=== PATIENT | female | born 1940 | race Caucasian/White ===

== ENCOUNTER → 2019-05-21 | Outpatient (CLI) | payer OTHER ==
[~2019-05-21] VITALS: Ht 152.4 cm; Wt 149.7 kg
[~2019-05-21] MED LIST: AMBIEN CR 6.26.25 MG PO; AMLODIPINE BESYL5 MG PO; APAP500 PO; ASPIRIN EC81 M1 PO; ATORVASTATIN CA80 MG PO; BENADRYL25 MG PO; BISAC-EVAC10 MG RC; CELEBREX 200 M200 M1 PO; CELEXA 20 MG TA20 MG PO; CLARITIN-D 121 EAC1 PO; CLARITIN10 MG PO; CLONAZEPAM 0.50.5 M1 PO; COUMADIN 5 MG TA5 M1 PO; DIOVAN HCT 1601 EAC1 PO; DOCUSATE SODIU100 MG PO; ENOXAPARIN120 MG/0.1 INJECTION; FERROUS SULFAT325 M1 PO; FISH OIL 1,001000 M1 PO; GLUCOPHAGE500 MG PO; GLYCOLAX17 GM PO; HYDROCODON-ACE1 EAC7 PO; LEXAPRO20 MG PO; LIDODERM1 EACH TOP; MINOCYCLINE HC100 M2 PO; NEXIUM 40 MG CA40 M1 PO; PRILOSEC OTC20 MG PO; SENNA PO; SYNTHROID200 MCG PO; SYNTHROID25 MC1 PO; SYNTHROID25 MCG PO; TRAMADOL 50 MG50 MG PO; VISTARIL 25 MG25 M1 PO; WELLBUTRIN SR150 MG PO; ZYRTEC10 M2 PO
[2019-05-21 12:58] VITALS: BP 146/82
--- NOTE | 2019-05-21 13:53 | NUR ---
Pain Clinic Assessment: 1. History of Osteoarthritis: SHOULDERS KNEES HIPS History of Rheumatoid Arthritis: Not Applicable 2. Height: 5 ft. 0 in. 152.4 cm. Weight: 330.0 lb. oz. 149.688 kg. Patient's BMI: 64.4 3. Vital Signs: BP: 146/82 Pulse: 73 Resp: 16 Temp: 02 Sat: 97 ECG Mon: 4. Pain Intensity: 5 5. Fall Risk: Dizziness: Y Needs help standing or walking: Y Fallen in the last 3 months: Y Fall risk comments: 6. Patient on Blood Thinner: None 7. History of Hypertension: Y 8. Opioid Therapy greater than 6 weeks: N Opiate Contract Signed: 9. Risk Assessment Tool Provided: 10. Functional Assessment Tool: 11. Recreational Drug Use: Never Drug Type: Tobacco Use: Never Smoker Tobacco Type: Amount or Packs/day: How Many Years: Alcohol Use: Yes Frequency: Daily Quant: 1/WEEK
== END ==
LOC: PAIN 07:06
DX: M54.16 Radiculopathy, lumbar region (principal); G89.29 Other chronic pain; E66.01 Morbid (severe) obesity due to excess calories; I10 Essential (primary) hypertension; Z79.891 Long term (current) use of opiate analgesic; Z79.899 Other long term (current) drug therapy

== ENCOUNTER → 2019-06-29 | Outpatient (CLI) | payer OTHER ==
[~2019-06-29] VITALS: Ht 152.4 cm; Wt 143.3 kg
[~2019-06-29] MED LIST changes: +APAP650 PO; +VITAMIN D22000 UNIT PO
--- NOTE | ~2019-06-29 | P ---
[facility] [place] [address] PROCEDURE REPORT Name: TOBIASJOSE J A Room #: REG [facility]#: [id number] Admission: 06/29/19 Attend Phys: Ermias Aldridge MD Discharge: Date of : 44 Report #: [id number] THIS REPORT FOR: //name// CC: Hayden Aldridge DATE OF SERVICE: 06/29/2019 DIAGNOSES: Low back pain with radiculopathy, left L5-S1 distribution. PROCEDURE: Left L5-S1 transforaminal epidural injection under fluoroscopic guidance. INDICATIONS FOR PROCEDURE: The patient was evaluated in the pain clinic less than 1 month ago. She was approved after that her office visit for a left transforaminal epidural injection based upon her physical exam findings and history. There have been no significant changes since her last visit. We reviewed the procedure, risks, and benefits. Questions were asked and she signed an informed consent prior to the procedure. PROCEDURE: Left L5-S1 transforaminal epidural injection. DESCRIPTION OF PROCEDURE: The patient was taken to fluoroscopic suite, placed prone, skin prepped with ChloraPrep. Skin anesthetized over the L5-S1 neural foramen. Using triplanar fluoroscopic views, I advanced needle into the neural foramen. A 1 mL of Omnipaque was injected and excellent spread of dye was seen into the epidural space. It also extended along the L5 nerve root. This was then followed by 4 mL of 0.5% lidocaine mixed with 60 mg of triamcinolone. She tolerated the procedure well. There were no complications. She was taken to recovery room for observation and discharged after a short stay. Followup visit planned in the pain clinic on an as needed basis going forward. Further injections may be indicated. By: [id number] Ermias Aldridge MD /nt
[2019-06-29 12:49] VITALS: BP 152/83
--- NOTE | 2019-06-29 13:07 | NUR ---
Pain Clinic Assessment: 1. History of Osteoarthritis: SHOULDERS KNEES HIPS History of Rheumatoid Arthritis: Not Applicable 2. Height: 5 ft. 0 in. 152.4 cm. Weight: 316.0 lb. oz. 143.337 kg. Patient's BMI: 61.7 3. Vital Signs: BP: 152/83 Pulse: 82 Resp: 20 Temp: 02 Sat: 97 ECG Mon: 4. Pain Intensity: 9-WHEN UP MOVING 5. Fall Risk: Dizziness: N Needs help standing or walking: Y Fallen in the last 3 months: N Fall risk comments: 6. Patient on Blood Thinner: None 7. History of Hypertension: Y 8. Opioid Therapy greater than 6 weeks: N Opiate Contract Signed: 9. Risk Assessment Tool Provided: 10. Functional Assessment Tool: 11. Recreational Drug Use: Never Drug Type: Tobacco Use: Never Smoker Tobacco Type: Amount or Packs/day: How Many Years: Alcohol Use: Yes Frequency: Quant:
== END | disposition home or self-care (01) ==
LOC: PAIN 06-04 13:05
DX: M54.16 Radiculopathy, lumbar region (principal); M54.5 Low back pain; Z88.8 Allergy status to other drugs, medicaments and biological substances; Z88.0 Allergy status to penicillin; Z79.899 Other long term (current) drug therapy; Z98.890 Other specified postprocedural states; Z79.84 Long term (current) use of oral hypoglycemic drugs

== ENCOUNTER → 2020-01-25 | Outpatient (CLI) | payer OTHER ==
[~2020-01-25] VITALS: Ht 152.4 cm; Wt 145.2 kg
--- NOTE | ~2020-01-25 | HPC ---
[facility] [address] [place] [address] PAIN MANAGEMENT CONSULTATION Name: JOSE J COLLADO Room #: REG [facility].#: [id number] Admission: 01/25/20 Attend Phys: Ermias Aldridge MD Discharge: Date of : 44 Report #: [id number] THIS REPORT FOR: cc: Hayden Owen MD, Neal A. MD Morgan,Ermias Lowry MD ~ CC: Hayden Aldridge DATE OF SERVICE: 01/25/2020 Followup visit for chronic low back pain with radiculopathy. The patient is a delightful 79-year-old woman who has a BMI of 62.5. She suffers from lumbar radiculopathy. Her pain is exclusively on the left. She has terrible left ankle as well and wears orthotic. She can walk a bit, but uses a walker, mostly does just transfers. She is able to get comfortable at rest, but in certain positions she is very uncomfortable. PQRS: Positive for pain in her shoulders, hips, knees with most severe osteoarthritis of the shoulders. This is likely due to weightbearing from her walker. BMI is mentioned as 62.5. She is not hypertensive at this time, well controlled with medication. Blood pressure 136/80, heart rate 83, respirations 20, O2 sat 97 on room air. She needs help walking and standing and uses a scooter outside of the house and a walker inside home. She has been cautious enough not to fall. Her pain intensity is 10 and positional. Risk assessment tool was not performed. We do not write opioids. SOCIAL HISTORY: She denies use of tobacco, drinks alcohol occasionally, maybe once a year in a social setting. Pain impact is 30/possible 70. PHYSICAL EXAMINATION: GENERAL: She is a pleasant female. VITAL SIGNS: As noted. Morbidly obese. CHEST: Clear. CARDIAC: Rhythm is regular. MUSCULOSKELETAL: Reveals tenderness across the lumbosacral segment. Positive straight leg raising discomfort on the left. Pain radiates all the way down the L5 distribution. IMPRESSION: L5 radiculopathy on the left. RECOMMENDATIONS: She had a 5-month response of 70% with her last lumbar epidural injection using a transforaminal approach. This would only be her second injection in 7 months. I strongly recommend we go forward with the [address] [address] PAIN MANAGEMENT CONSULTATION Name: JOSE J COLLADO Arabella Room #: REG [facility] Chayo#: [id number] Admission: 01/25/20 Attend Phys: Ermias Aldridge MD Discharge: Date of : 44 Report #: [id number] injection. We will seek preauthorization from her insurance. She has [employer] senior plan. She meets all criteria. Followup visit is planned as soon as we can get her scheduled. By: 1353 [id number] Ermias Aldridge MD /nt
[2020-01-25 12:42] VITALS: BP 136/80
--- NOTE | 2020-01-25 12:57 | NUR ---
Pain Clinic Assessment: 1. History of Osteoarthritis: SHOULDERS KNEES HIPS History of Rheumatoid Arthritis: Not Applicable 2. Height: 5 ft. 0 in. 152.4 cm. Weight: 320.0 lb. oz. 145.152 kg. Patient's BMI: 62.5 3. Vital Signs: BP: 136/80 Pulse: 83 Resp: 20 Temp: 02 Sat: 97 ECG Mon: 4. Pain Intensity: 10 POSITIONAL. 0 AT REST 5. Fall Risk: Dizziness: Y Needs help standing or walking: Y Fallen in the last 3 months: N Fall risk comments: 6. Patient on Blood Thinner: None 7. History of Hypertension: Y 8. Opioid Therapy greater than 6 weeks: N Opiate Contract Signed: 9. Risk Assessment Tool Provided: 10. Functional Assessment Tool: 11. Recreational Drug Use: Never Drug Type: Tobacco Use: Never Smoker Tobacco Type: Amount or Packs/day: How Many Years: Alcohol Use: Yes Frequency: Special Occasions Quant: 1 YEARLY
== END ==
LOC: PAIN 06:51
PROVIDERS: ATTEND Anesthesiology Pain Medicine
DX: M19.012 Primary osteoarthritis, left shoulder (principal); M19.011 Primary osteoarthritis, right shoulder; M54.16 Radiculopathy, lumbar region

== ENCOUNTER → 2020-02-01 | Outpatient (CLI) | payer OTHER ==
[~2020-02-01] VITALS: Ht 152.4 cm; Wt 149.7 kg
[2020-02-01 11:30] VITALS: BP 148/91
--- NOTE | 2020-02-01 11:37 | NUR ---
Pain Clinic Assessment: 1. History of Osteoarthritis: SHOULDERS KNEES HIPS History of Rheumatoid Arthritis: DENIES 2. Height: 5 ft. 0 in. 152.4 cm. Weight: 330.0 lb. oz. 149.688 kg. Patient's BMI: 64.4 3. Vital Signs: BP: 148/91 Pulse: 86 Resp: 20 Temp: 02 Sat: 98 ECG Mon: 4. Pain Intensity: 7 5. Fall Risk: Dizziness: N Needs help standing or walking: Y Fallen in the last 3 months: N Fall risk comments: 6. Patient on Blood Thinner: None 7. History of Hypertension: Y 8. Opioid Therapy greater than 6 weeks: N Opiate Contract Signed: 9. Risk Assessment Tool Provided: 10. Functional Assessment Tool: 11. Recreational Drug Use: Never Drug Type: Tobacco Use: Never Smoker Tobacco Type: Amount or Packs/day: How Many Years: Alcohol Use: Yes Frequency: Special Occasions Quant:
--- NOTE | 2020-02-18 09:56 | HPC ---
[facility] [place] [place] [address] PAIN MANAGEMENT CONSULTATION Name: JOSE J COLLADO Room #: REG [facility]#: [id number] Admission: 02/01/20 Attend Phys: Ermias Aldridge MD Discharge: Date of : 44 Report #: [id number] THIS REPORT FOR: cc: Hayden Owen MD, Neal A. MD Morgan,Ermias Lowry MD ~ CC: Hayden Aldridge DATE OF SERVICE: 02/01/2020 Followup visit for right L5-S1 transforaminal epidural injection. The patient has returned to the pain clinic today for the injection discussed at her prior visit. We have received preauthorization and she is anxious to go forward. Her last injection in July was helpful. With a BMI of 62.5, we do not have a lot of options for treatment. Discussed potential risks and benefits. She is anxious to proceed. IMPRESSION: Severe L5 radiculopathy on the left. PROCEDURE: L5-S1 transforaminal epidural injection under fluoroscopic guidance. After the informed consent. she was taken to fluoroscopic suite, placed prone, skin prepped with ChloraPrep. Skin anesthetized over the L5-S1 neural foramen. Using triplanar fluoroscopic views, I advanced needle into the neural foramen. A 0.25 mL of Omnipaque was injected and an excellent epidurogram was achieved with spread of dye into the epidural space. It also extended along the L5 nerve root. I followed this with 4 mL of 0.5% lidocaine mixed with 60 mg of triamcinolone due to her diabetes. She tolerated the procedure well. There were no complications. She was taken to recovery room for observation and at the time of this dictation, was doing well. She will be discharged after a short stay. Follow up for further injections as needed. <ELECTRONICALLY SIGNED> By: Ermias Aldridge MD 02/18/20 [id number] Ermias Aldridge MD /nt
== END | disposition home or self-care (01) ==
LOC: PAIN 07:02
PROVIDERS: ATTEND Anesthesiology Pain Medicine
DX: M54.16 Radiculopathy, lumbar region (principal); G89.29 Other chronic pain; Z98.890 Other specified postprocedural states; Z79.899 Other long term (current) drug therapy; Z88.0 Allergy status to penicillin; Z88.8 Allergy status to other drugs, medicaments and biological substances

== ENCOUNTER → 2021-05-15 | Outpatient (CLI) | payer OTHER ==
[~2021-05-15] VITALS: Ht 152.4 cm; Wt 127.6 kg
[2021-05-15 14:01] VITALS: BP 152/81
--- NOTE | 2021-05-15 14:13 | NUR ---
Pain Clinic Assessment: 1. History of Osteoarthritis: SHOULDERS KNEES HIPS History of Rheumatoid Arthritis: DENIES 2. Height: 5 ft. 0 in. 152.4 cm. Weight: 281.4 lb. oz. 127.643 kg. Patient's BMI: 55.0 3. Vital Signs: BP: 152/81 Pulse: 68 Resp: 22 Temp: 02 Sat: 97 ECG Mon: 4. Pain Intensity: 8 5. Fall Risk: Dizziness: N Needs help standing or walking: Y Fallen in the last 3 months: N Fall risk comments: 6. Patient on Blood Thinner: None 7. History of Hypertension: Y 8. Opioid Therapy greater than 6 weeks: N Opiate Contract Signed: 9. Risk Assessment Tool Provided: low 0 10. Functional Assessment Tool: 11. Recreational Drug Use: Never Drug Type: Tobacco Use: Never Smoker Tobacco Type: Amount or Packs/day: How Many Years: Alcohol Use: No Frequency: Quant:
== END ==
LOC: PAIN 10:33
PROVIDERS: ATTEND Anesthesiology Pain Medicine
DX: M19.012 Primary osteoarthritis, left shoulder (principal); M19.011 Primary osteoarthritis, right shoulder; Z79.899 Other long term (current) drug therapy; Z88.0 Allergy status to penicillin; Z88.8 Allergy status to other drugs, medicaments and biological substances

== ENCOUNTER → 2021-05-25 | Outpatient (CLI) | payer OTHER ==
[~2021-05-25] VITALS: Ht 152.4 cm; Wt 135.2 kg
[2021-05-25 12:33] VITALS: BP 157/89
--- NOTE | 2021-05-25 12:37 | NUR ---
Pain Clinic Assessment: 1. History of Osteoarthritis: SHOULDERS KNEES HIPS History of Rheumatoid Arthritis: DENIES 2. Height: 5 ft. 0 in. 152.4 cm. Weight: 298.0 lb. oz. 135.172 kg. Patient's BMI: 58.2 3. Vital Signs: BP: 157/89 Pulse: 82 Resp: 18 Temp: 02 Sat: 99 ECG Mon: 4. Pain Intensity: 5 5. Fall Risk: Dizziness: N Needs help standing or walking: N Fallen in the last 3 months: N Fall risk comments: 6. Patient on Blood Thinner: None 7. History of Hypertension: Y 8. Opioid Therapy greater than 6 weeks: N Opiate Contract Signed: 9. Risk Assessment Tool Provided: low 0 10. Functional Assessment Tool: 39/ 11. Recreational Drug Use: Never Drug Type: Tobacco Use: Never Smoker Tobacco Type: Amount or Packs/day: How Many Years: Alcohol Use: No Frequency: Quant:
== END | disposition home or self-care (01) ==
LOC: PAIN 10:56
PROVIDERS: ATTEND Anesthesiology Pain Medicine
DX: M19.011 Primary osteoarthritis, right shoulder (principal); M19.012 Primary osteoarthritis, left shoulder; Z98.890 Other specified postprocedural states; Z79.899 Other long term (current) drug therapy; Z88.0 Allergy status to penicillin; Z88.8 Allergy status to other drugs, medicaments and biological substances; G89.29 Other chronic pain